=== PATIENT | male | born 1970 | race Caucasian/White ===

== ENCOUNTER 2024-01-03 06:22 | Emergency (ER) | payer MEDICARE, OTHER ==
[~2024-01-03] VITALS: Ht 177.8 cm; Wt 97.5 kg
[2024-01-03 07:40] LABS: BASOPHILS ABSOLUTE AUTO 0.03 K/mm3 (0.00-0.23); BASOPHILS PERCENT AUTO 0 % (0-2); EOSINOPHILS ABSOLUTE AUTO 0.05 K/mm3 (0.00-0.68); EOSINOPHILS PERCENT AUTO 1 % (0-6); Hematocrit 41.1 % (37.0-53.0); Hemoglobin 14.1 g/dL (13.5-17.5); IMMATURE GRAN ABSOLUTE AUTO 0.01 K/mm3 (0.00-0.10); IMMATURE GRAN PERCENT AUTO 0 % (0-1); LYMPHOCYTES ABSOLUTE AUTO 0.91 K/mm3 (0.84-5.20); LYMPHOCYTES PERCENT AUTO 13 % (21-46); MONOCYTES ABSOLUTE AUTO 0.43 K/mm3 (0.16-1.47); MONOCYTES PERCENT AUTO 6 % (4-13); Mean Corpuscular HGB Conc 34.3 g/dL (31.5-36.5); Mean Corpuscular Volume 96 fL (80-100); Mean Platelet Volume 9.7 fL (9.1-12.4); NEUTROPHILS ABSOLUTE AUTO 5.66 K/mm3 (1.96-9.15); NEUTROPHILS PERCENT AUTO 80 % (41-73); Platelet Count 214 K/mm3 (150-400); RDW Standard Deviation 42.5 fL (35.1-46.3); Red Blood Cell Count 4.27 M/mm3 (4.30-5.90); White Blood Cell Count 7.09 K/mm3 (4.00-11.30)
[2024-01-03 07:58] LABS: Acetaminophen, Random <2.0 ug/mL (10.0-30.0); Alanine Aminotransfer (ALT/SGP 28 U/L (12-78); Albumin, Blood 3.6 g/dL (3.4-5.0); Albumin/Globulin Ratio 1.1 (0.8-1.8); Alk Phos 73 U/L (50-136); Anion Gap 13 mmol/L (3-11); Aspartate Aminotrans (AST/SGOT 30 U/L (12-37); Bilirubin, Total 0.8 mg/dL (0.1-1.0); Blood Urea Nitrogen 13 mg/dL (8-24); Bun/Creatinine Ratio 18.3 (12.0-20.0); CO2, Blood 21 mmol/L (21-32); Calcium, Blood 8.7 mg/dL (8.5-10.1); Chloride, Blood 110 mmol/L (98-108); Creatinine, Blood 0.71 mg/dL (0.60-1.20); Ethanol (Alcohol), Blood, Med <3 mg/dL; Globulin, Blood 3.2 g/dL (2.2-4.0); Glomerular Filtration Rate 110 (60-); Glucose, Blood 88 mg/dL (70-99); Salicylate 2.9 mg/dL (2.8-20.0); Sodium, Blood 140 mmol/L (136-145); Total Protein, Blood 6.8 g/dL (6.4-8.2)
[2024-01-03 08:07] LABS: Source, Urine Clean Catch
[2024-01-03 08:12] LABS: Bilirubin, Urine Neg (Neg); Blood, Urine Neg (Neg); Glucose Qualitative, Urine Neg (Neg); Ketones, Urine 4+ (Neg); Leukocyte Esterase, Urine Neg (Neg); Nitrite, Urine Neg (Neg); Protein, Urine Neg (Neg); Urobilinogen, Urine NORM (Normal)
[2024-01-03 08:15] LABS: Appearance, Urine Clear (Clear); Color, Urine Yellow (P-Yellow)
[2024-01-03 08:25] LABS: Influenza A, PCR NEGATIVE (NEGATIVE); Influenza B, PCR NEGATIVE (NEGATIVE); Resp Syncytial Virus, PCR NEGATIVE (NEGATIVE); SARS-Cov-2 (COVID-19) PCR, MMC NEGATIVE (NEGATIVE)
[2024-01-03 08:25] LABS: U Amphetamine Screen Not Detected; U Barbituate Screen Not Detected; U Benzodiazapine Screen Not Detected; U Buprenorphine Screen Not Detected; U Cannabinoids Screen DETECTED; U Cocaine Screen Not Detected; U Methadone Screen Not Detected; U Methamphetamine Screen Not Detected; U Opiates Screen Not Detected; U Oxycodone Screen Not Detected; U Phencyclidine Screen Not Detected
[2024-01-03] MEDS ORDERED: Acetaminophen 500 MG Tab PO ONE (08:55)
[2024-01-03] MEDS ORDERED: RISP2 PO (10:33)
[2024-01-03] MEDS ORDERED: ABILIFY MAINTE400 M1 IM (10:33)
[2024-01-03] MEDS ORDERED: ATOR40TA PO (17:41)
[2024-01-03] MEDS ORDERED: TAMS.4ER PO (17:42)
[2024-01-03] MEDS ORDERED: HYDPAM25 PO (17:42)
[2024-01-10] MEDS ORDERED: TRAZ50 PO (11:34)
[2024-01-10] MEDS ORDERED: BACTRIM DS TAB1 EAC6 PO (11:34)
== END 2024-01-03 16:36 | disposition other institution (70) ==
LOC: EDSEX 06:22 → ER 06:22 → EDBEDREQ 12:52 → ER 16:36
PROVIDERS: Student in an Organized Health Care Education/Training Program
DX: R45.851 Suicidal ideations (principal); E78.5 Hyperlipidemia, unspecified; R07.9 Chest pain, unspecified; I25.84 Coronary atherosclerosis due to calcified coronary lesion; I51.7 Cardiomegaly
CPT/HCPCS: 0241U; 71045; 71260; 80053; 80320; 81003; 84484; 85025; 86592; 93005; 93010; 99285-25; A9270; G0480; Q9967

== ENCOUNTER 2024-01-13 12:25 | Emergency (ER) | payer MEDICARE, OTHER ==
[~2024-01-13] VITALS: Ht 175.3 cm; Wt 102.1 kg
[~2024-01-13 12:25] MED LIST: ABILIFY MAINTE400 M1 IM; ATOR40TA PO; BACTRIM DS TAB1 EAC6 PO; HYDPAM25 PO; RISP2 PO; TAMS.4ER PO; TRAZ50 PO
== END 2024-01-13 12:42 | disposition home or self-care (01) ==
LOC: ER 12:25
DX: F20.9 Schizophrenia, unspecified (principal); Z59.00 Homelessness unspecified; E78.5 Hyperlipidemia, unspecified; Z79.899 Other long term (current) drug therapy
CPT/HCPCS: 99281

== ENCOUNTER 2024-02-14 08:17 | Emergency (ER) | payer OTHER ==
[~2024-02-14] VITALS: Ht 180.3 cm; Wt 104.3 kg
[2024-02-14] MEDS ORDERED: Flomax0.4 MG PO (09:29)
== END 2024-02-14 09:30 | disposition home or self-care (01) ==
LOC: ER 08:17
DX: N40.0 Benign prostatic hyperplasia without lower urinary tract symptoms (principal); Z76.0 Encounter for issue of repeat prescription; F17.200 Nicotine dependence, unspecified, uncomplicated
CPT/HCPCS: 99281

== ENCOUNTER 2024-02-24 17:56 | Emergency (ER) | payer MEDICARE, OTHER ==
[~2024-02-24] VITALS: Ht 180.3 cm; Wt 104.3 kg
[~2024-02-24 17:56] MED LIST changes: +Flomax0.4 MG PO
[2024-02-24] MEDS ORDERED: Ketorolac Tromethamine 15mg Vial IM ONE (21:40)
[2024-02-24] MEDS ORDERED: Lidocaine 4% 1 Patch TOP ONE (21:40)
== END 2024-02-24 22:23 | disposition home or self-care (01) ==
LOC: ER 17:56
DX: M54.9 Dorsalgia, unspecified (principal); E78.5 Hyperlipidemia, unspecified; Z79.899 Other long term (current) drug therapy
CPT/HCPCS: 74018; 96372; 99283-25; A9270; J1885

== ENCOUNTER 2024-02-25 20:14 | Emergency (ER) | payer MEDICARE, OTHER ==
[~2024-02-25] VITALS: Ht 180.3 cm; Wt 104.3 kg
== END 2024-02-25 20:40 | disposition home or self-care (01) ==
LOC: ER 20:14
DX: Z65.8 Other specified problems related to psychosocial circumstances (principal); E78.5 Hyperlipidemia, unspecified; Z79.899 Other long term (current) drug therapy
CPT/HCPCS: 99282

== ENCOUNTER 2024-02-27 16:39 | Emergency (ER) | payer MEDICARE, OTHER ==
[~2024-02-27] VITALS: Ht 180.3 cm; Wt 108.9 kg
== END 2024-02-27 17:17 | disposition home or self-care (01) ==
LOC: ER 16:39
DX: Z00.8 Encounter for other general examination (principal); Z65.9 Problem related to unspecified psychosocial circumstances; E78.5 Hyperlipidemia, unspecified; N40.0 Benign prostatic hyperplasia without lower urinary tract symptoms; Z79.899 Other long term (current) drug therapy
CPT/HCPCS: 99284